=== PATIENT | male | born 1935 | race Caucasian/White ===

== ENCOUNTER 2020-07-23 20:35 | Emergency (ER) | payer BC, MEDICARE ==
[~2020-07-23] VITALS: Ht 185.4 cm; Wt 115.7 kg
[~2020-07-23 20:35] MED LIST: [UNRECOGNIZED DRUG - REMARK]
[2020-07-23 21:43] VITALS: BP 154/81
--- NOTE | 2020-07-23 21:56 | NUR ---
[facility] PATRICIO [phone]
--- NOTE | 2020-07-24 00:07 | NUR ---
VELCRO WRIST SPLINT ON RIGHT HAND.
--- NOTE | 2020-07-24 00:36 | NUR ---
Patient discharged to home in stable condition. Written and verbal after care instructions given. Patient verbalizes understanding of instruction.
--- NOTE | 2020-07-24 00:36 | NUR ---
DAUGHTER OUTSIDE TO RECEIVE PATIENT.
== END 2020-07-24 00:36 | disposition home or self-care (01) ==
LOC: ER 20:38
DX: S63.591A Other specified sprain of right wrist, initial encounter (principal); S09.8XXA Other specified injuries of head, initial encounter; R41.82 Altered mental status, unspecified; I10 Essential (primary) hypertension; Z90.79 Acquired absence of other genital organ(s); W01.0XXA Fall on same level from slipping, tripping and stumbling without subsequent striking against object, initial encounter; Y93.89 Activity, other specified; Y92.89 Other specified places as the place of occurrence of the external cause; Y99.8 Other external cause status
CPT/HCPCS: 70450-TC; 73110

== ENCOUNTER 2021-09-11 15:32 | Emergency (ER) | payer BC ==
[~2021-09-11] VITALS: Ht 185.4 cm; Wt 112.5 kg
--- NOTE | 2021-09-11 15:35 | NUR ---
TO ER BED 11, C/O RT SHOULDER PAIN/DISLOCATION, AAOX3, BREATHING EVEN AND NON LABORED, CONNECTED TO MONITOR
[2021-09-11] MEDS ORDERED: KETOROLAC TROMETHAMINE INJ 30 MG/ML VIAL ONE (15:52)
[2021-09-11] MEDS ORDERED: FENTANYL PF 100MCG/2ML AMPUL ONE (15:52)
[2021-09-11] MEDS ORDERED: FENTANYL PF 100MCG/2ML AMPUL IM ONE (16:00)
[2021-09-11] MEDS ORDERED: KETOROLAC TROMETHAMINE INJ 30 MG/ML VIAL IM ONE (16:00)
[2021-09-11] MEDS ORDERED: PROPOFOL 20 ML IV ONE (16:19)
--- NOTE | 2021-09-11 16:24 | NUR ---
RT SHOULDER DISLOCATION REDUCTION UNDER MODERATE SEDATION WITH DR GALEANO. GIVEN 70MG OF PROPOFOL
[2021-09-11] MEDS ORDERED: PROPOFOL 200 MG/20 ML VIAL IV ONE (16:30)
--- NOTE | 2021-09-11 17:31 | NUR ---
CALLED BLAIR FOR POST REDUCTION X RAY READ.
--- NOTE | 2021-09-11 17:45 | NUR ---
Patient discharged to daughter in stable condition. Written and verbal after care instructions given. Patient verbalizes understanding of instruction.
[2021-09-11 18:03] VITALS: BP 154/70
== END 2021-09-11 18:04 | disposition home or self-care (01) ==
LOC: ER 15:34
DX: S43.014A Anterior dislocation of right humerus, initial encounter (principal); I10 Essential (primary) hypertension; Z98.890 Other specified postprocedural states; Z90.49 Acquired absence of other specified parts of digestive tract; W18.39XA Other fall on same level, initial encounter; Y93.89 Activity, other specified; Y92.89 Other specified places as the place of occurrence of the external cause; Y99.8 Other external cause status
CPT/HCPCS: 23650; 73030 ×2; 96372 ×2; 99152; 99285; J1885; J2704; J3010; J7030; G0500

== ENCOUNTER 2022-12-03 11:56 | Emergency (ER) | payer BC ==
[~2022-12-03] VITALS: Ht 185.4 cm; Wt 110.7 kg
[2022-12-03 12:08] VITALS: BP 158/88
[2022-12-03] MEDS ORDERED: IBUP-1955 PO (13:19)
== END 2022-12-03 13:34 | disposition home or self-care (01) ==
LOC: ER 12:00
DX: S91.112A Laceration without foreign body of left great toe without damage to nail, initial encounter (principal); S20.212A Contusion of left front wall of thorax, initial encounter; I10 Essential (primary) hypertension; Z90.49 Acquired absence of other specified parts of digestive tract; Z98.890 Other specified postprocedural states; Z79.899 Other long term (current) drug therapy; W17.89XA Other fall from one level to another, initial encounter; Y93.89 Activity, other specified; Y92.89 Other specified places as the place of occurrence of the external cause; Y99.8 Other external cause status
CPT/HCPCS: 71100-TC

== ENCOUNTER 2023-11-29 21:21 | Inpatient (IN) | payer BC, MEDICARE ==
[~2023-11-29] VITALS: Ht 185.4 cm; Wt 116.1 kg
[~2023-11-29 21:21] MED LIST changes: +IBUP-1955 PO
[2023-11-29] MEDS ORDERED: IV NS 0.9% 500 ML BAG IV ONE (22:00)
[2023-11-29 23:14] LABS: BASOPHILS % (AUTO) 0.2 % (0.0-2.0); EOSINOPHILS # (AUTO) 0.2 K/uL (0.0-0.7); EOSINOPHILS % (AUTO) 1.4 % (0.0-6.0); HEMATOCRIT 42 % (39-51); HEMOGLOBIN 14.2 g/dL (13.5-17.5); LYMPHOCYTES # (AUTO) 2.1 K/uL (0.8-4.8); LYMPHOCYTES % (AUTO) 19.3 % (20.0-44.0); MEAN CORPUSCULAR HEMOGLOBIN 31 PG (26.0-33.0); MEAN CORPUSCULAR HGB CONC 34 g/dl (31.0-36.0); MEAN CORPUSCULAR VOLUME 91 fL (80-96); MONOCYTES # (AUTO) 0.8 K/uL (0.1-1.30); MONOCYTES % (AUTO) 7.3 % (2.0-12.0); NEUTROPHILS # (AUTO) 7.7 K/uL (1.8-8.9); NEUTROPHILS % (AUTO) 71.8 % (43.0-81.0); PLATELET COUNT (AUTO) 267 K/uL (150-450); RED BLOOD CELL COUNT(AUTO) 4.59 MIL/uL (4.5-6.0); RED CELL DISTRIBUTION WIDTH 13.5 % (11.5-15.0); WHITE BLOOD COUNT (AUTO) 10.8 K/uL (4.3-11.0)
[2023-11-29 23:22] LABS: CALCIUM, SERUM 8.8 mg/dL (8.5-10.1); CARBON DIOXIDE 25 mmol/L (21-32); CHLORIDE 102 mmol/L (98-107); GLUCOSE 108 mg/dL (74-106); POTASSIUM 3.9 mmol/L (3.5-5.1); SODIUM SERUM 137 mmol/L (136-145); UREA NITROGEN, BLOOD 28 mg/dL (7-18)
[2023-11-29 23:27] LABS: INR 0.97 (0.91-1.10); PARTIAL THROMBOPLASTIN TIME 28.3 SEC (24.3-34.3); PROTHROMBIN TIME 10.3 SECS (9.2-11.1)
[2023-11-29] MEDS ORDERED: ONDANSETRON HCL/PF 4 MG/2 ML VIAL IVP PRN (23:30)
[2023-11-29] MEDS ORDERED: MORPHINE SULFATE INJ 2 MG/ML DISP.SYRIN IV PRN (23:30)
[2023-11-29] MEDS ORDERED: hydrALAZINE HCL IV 20 MG VIAL IV PRN (23:30)
[2023-11-29] MEDS ORDERED: ACETAMINOPHEN 325 MG TABLET PO PRN (23:30)
[2023-11-29] MEDS ORDERED: IV NS 0.9% 1,000 ML IV SCH (23:30)
[2023-11-29 23:32] LABS: ALANINE AMINOTRANSFERASE 27 U/L (12-78); ALBUMIN 3.5 g/dL (3.4-5.0); ALKALINE PHOSPHATASE 87 U/L (46-116); ASPARTATE AMINOTRANSFERASE 24 U/L (15-37); BILIRUBIN,DIRECT 0.1 mg/dL (0.0-0.2); BILIRUBIN,TOTAL 0.5 mg/dL (0.2-1.0); LIPASE 16 U/L (16-77); TOTAL PROTEIN, SERUM 6.9 g/dL (6.4-8.2)
[2023-11-30] VITALS (9 sets, daily range): BP systolic 104–170; BP diastolic 78–101; TEMP 97.9–98.4; O2SAT 95–99
[2023-11-30 06:45] LABS: BASOPHILS % (AUTO) 0.3 % (0.0-2.0); EOSINOPHILS # (AUTO) 0.1 K/uL (0.0-0.7); EOSINOPHILS % (AUTO) 0.8 % (0.0-6.0); HEMATOCRIT 37 % (39-51); HEMOGLOBIN 12.4 g/dL (13.5-17.5); LYMPHOCYTES # (AUTO) 1.9 K/uL (0.8-4.8); MEAN CORPUSCULAR HEMOGLOBIN 31 PG (26.0-33.0); MEAN CORPUSCULAR HGB CONC 33 g/dl (31.0-36.0); MEAN CORPUSCULAR VOLUME 93 fL (80-96); MONOCYTES # (AUTO) 0.6 K/uL (0.1-1.30); MONOCYTES % (AUTO) 5.9 % (2.0-12.0); NEUTROPHILS # (AUTO) 7.9 K/uL (1.8-8.9); PLATELET COUNT (AUTO) 193 K/uL (150-450); RED BLOOD CELL COUNT(AUTO) 3.98 MIL/uL (4.5-6.0); RED CELL DISTRIBUTION WIDTH 13.8 % (11.5-15.0); WHITE BLOOD COUNT (AUTO) 10.5 K/uL (4.3-11.0)
[2023-11-30 06:54] LABS: CALCIUM, SERUM 8.3 mg/dL (8.5-10.1)
[2023-11-30 07:58] LABS: BASOPHILS % (AUTO) 0.2 % (0.0-2.0); EOSINOPHILS # (AUTO) 0.1 K/uL (0.0-0.7); EOSINOPHILS % (AUTO) 0.3 % (0.0-6.0); HEMATOCRIT 38 % (39-51); HEMOGLOBIN 12.5 g/dL (13.5-17.5); LYMPHOCYTES # (AUTO) 1.1 K/uL (0.8-4.8); LYMPHOCYTES % (AUTO) 7.2 % (20.0-44.0); MEAN CORPUSCULAR HEMOGLOBIN 31 PG (26.0-33.0); MEAN CORPUSCULAR HGB CONC 33 g/dl (31.0-36.0); MEAN CORPUSCULAR VOLUME 92 fL (80-96); MONOCYTES # (AUTO) 0.8 K/uL (0.1-1.30); NEUTROPHILS # (AUTO) 13.5 K/uL (1.8-8.9); NEUTROPHILS % (AUTO) 87.3 % (43.0-81.0); PLATELET COUNT (AUTO) 228 K/uL (150-450); RED CELL DISTRIBUTION WIDTH 13.7 % (11.5-15.0); WHITE BLOOD COUNT (AUTO) 15.4 K/uL (4.3-11.0)
[2023-11-30] MEDS ORDERED: ATOR10TA PO (08:03)
[2023-11-30] MEDS ORDERED: NEBI5TAB8 PO (08:03)
[2023-11-30] MEDS ORDERED: LORA-258 PO (08:03)
[2023-11-30] MEDS ORDERED: AMLO5TAB4 PO (08:03)
[2023-11-30] MEDS ORDERED: TAMS-12 PO (08:03)
[2023-11-30 08:12] LABS: ALBUMIN 3.3 g/dL (3.4-5.0); BILIRUBIN,TOTAL 0.5 mg/dL (0.2-1.0); CALCIUM, SERUM 8.6 mg/dL (8.5-10.1); CREATININE 1.1 mg/dL (0.6-1.3); MAGNESIUM 2.3 mg/dL (1.8-2.4); PHOSPHORUS 3.2 mg/dL (2.5-4.9); POTASSIUM 4.2 mmol/L (3.5-5.1); TOTAL PROTEIN, SERUM 6.3 g/dL (6.4-8.2)
[2023-11-30] MEDS: PANTOPRAZOLE 40 MG VIAL IV SCH ×2 (09:26→17:53)
[2023-11-30] MEDS: CEFTRIAXONE 1 G in IV D5W 50 ML IV SCH (12:44)
[2023-11-30] MEDS: METRONIDAZOLE 500MG/ NS 100ML 500 MG in PREMIX 1 EA IV SCH ×2 (14:16→17:59)
[2023-11-30] MEDS: IV NS 0.9% 1,000 ML IV PRN ×2 (18:00→23:23)
[2023-11-30] MEDS ORDERED: AMIODARONE 150 MG in IV D5W 100 ML IV ONE (22:00)
[2023-11-30] MEDS ORDERED: AMIODARONE 150 MG/3 ML VIAL IV ONE ×2 (22:31→22:39)
[2023-11-30] MEDS: AMIODARONE 450 MG in IV D5W 241 ML IV PRN (22:47)
[2023-12-01] VITALS (30 sets, daily range): BP systolic 110–188; BP diastolic 68–112; TEMP 97.3–98.4; O2SAT 96–99
[2023-12-01] MEDS: METRONIDAZOLE 500MG/ NS 100ML 500 MG in PREMIX 1 EA IV SCH ×5 (00:06→23:31)
[2023-12-01 04:22] LABS: CALCIUM, SERUM 8.4 mg/dL (8.5-10.1); CARBON DIOXIDE 26 mmol/L (21-32); CHLORIDE 106 mmol/L (98-107); GLUCOSE 107 mg/dL (74-106); POTASSIUM 3.8 mmol/L (3.5-5.1); SODIUM SERUM 139 mmol/L (136-145); UREA NITROGEN, BLOOD 15 mg/dL (7-18)
[2023-12-01 04:26] LABS: BASOPHILS % (AUTO) 0.1 % (0.0-2.0); EOSINOPHILS # (AUTO) 0.1 K/uL (0.0-0.7); HEMATOCRIT 35 % (39-51); HEMOGLOBIN 11.9 g/dL (13.5-17.5); LYMPHOCYTES # (AUTO) 1.7 K/uL (0.8-4.8); LYMPHOCYTES % (AUTO) 13.1 % (20.0-44.0); MEAN CORPUSCULAR HEMOGLOBIN 31 PG (26.0-33.0); MEAN CORPUSCULAR HGB CONC 34 g/dl (31.0-36.0); MEAN CORPUSCULAR VOLUME 91 fL (80-96); MONOCYTES # (AUTO) 0.8 K/uL (0.1-1.30); MONOCYTES % (AUTO) 6.3 % (2.0-12.0); NEUTROPHILS # (AUTO) 10.1 K/uL (1.8-8.9); NEUTROPHILS % (AUTO) 79.5 % (43.0-81.0); PLATELET COUNT (AUTO) 232 K/uL (150-450); RED BLOOD CELL COUNT(AUTO) 3.82 MIL/uL (4.5-6.0); RED CELL DISTRIBUTION WIDTH 13.8 % (11.5-15.0); WHITE BLOOD COUNT (AUTO) 12.7 K/uL (4.3-11.0)
[2023-12-01] MEDS: AMIODARONE 450 MG in IV D5W 241 ML IV PRN (08:09)
[2023-12-01] MEDS: METOPROLOL TARTRATE 25 MG TABLET PO SCH ×2 (08:49→21:03)
[2023-12-01] MEDS: AMLODIPINE BESYLATE 5 MG TABLET PO SCH (08:49)
[2023-12-01] MEDS: ATORVASTATIN 10 MG TABLET PO SCH (08:50)
[2023-12-01] MEDS: TAMSULOSIN 0.4 MG CAP.SR.24H PO SCH (08:50)
[2023-12-01] MEDS: PANTOPRAZOLE 40 MG VIAL IV SCH ×2 (08:50→17:23)
[2023-12-01 09:10] LABS: THYROID STIMULATING HORMONE 1.064 uIU/mL (0.358-3.74)
[2023-12-01] MEDS: CEFTRIAXONE 1 G in IV D5W 50 ML IV SCH (10:21)
[2023-12-01] MEDS: IV NS 0.9% 1,000 ML IV PRN (14:36)
[2023-12-01 23:38] LABS: HEMOGLOBIN 11.6 g/dL (13.5-17.5)
[2023-12-02] VITALS: BP 120/62; TEMP 98.6; O2SAT 95
[2023-12-02 04:00] VITALS: BP 157/89; TEMP 98.4; O2SAT 98
[2023-12-02] MEDS: METRONIDAZOLE 500MG/ NS 100ML 500 MG in PREMIX 1 EA IV SCH ×3 (05:14→17:50)
[2023-12-02 07:42] LABS: BASOPHILS % (AUTO) 0.1 % (0.0-2.0); EOSINOPHILS # (AUTO) 0.2 K/uL (0.0-0.7); EOSINOPHILS % (AUTO) 1.6 % (0.0-6.0); HEMATOCRIT 33 % (39-51); HEMOGLOBIN 11.2 g/dL (13.5-17.5); LYMPHOCYTES # (AUTO) 1.5 K/uL (0.8-4.8); MEAN CORPUSCULAR HEMOGLOBIN 31 PG (26.0-33.0); MEAN CORPUSCULAR HGB CONC 34 g/dl (31.0-36.0); MEAN CORPUSCULAR VOLUME 91 fL (80-96); MONOCYTES # (AUTO) 1.1 K/uL (0.1-1.30); NEUTROPHILS # (AUTO) 9.9 K/uL (1.8-8.9); NEUTROPHILS % (AUTO) 77.3 % (43.0-81.0); PLATELET COUNT (AUTO) 227 K/uL (150-450); RED BLOOD CELL COUNT(AUTO) 3.63 MIL/uL (4.5-6.0); RED CELL DISTRIBUTION WIDTH 13.9 % (11.5-15.0); WHITE BLOOD COUNT (AUTO) 12.8 K/uL (4.3-11.0)
[2023-12-02 07:56] LABS: CALCIUM, SERUM 8.3 mg/dL (8.5-10.1); CREATININE 0.9 mg/dL (0.6-1.3); MAGNESIUM 2.1 mg/dL (1.8-2.4); PHOSPHORUS 2.7 mg/dL (2.5-4.9); POTASSIUM 3.5 mmol/L (3.5-5.1)
[2023-12-02 08:00] VITALS: BP 135/74; TEMP 98.6; O2SAT 97
[2023-12-02] MEDS: IV NS 0.9% 1,000 ML IV PRN (10:03)
[2023-12-02] MEDS: PANTOPRAZOLE 40 MG/PACK PACK PO SCH ×2 (10:04→16:23)
[2023-12-02] MEDS: ATORVASTATIN 10 MG TABLET PO SCH (10:04)
[2023-12-02] MEDS: ASPIRIN 81 MG TAB.CHEW PO SCH (10:05)
[2023-12-02] MEDS: TAMSULOSIN 0.4 MG CAP.SR.24H PO SCH (10:05)
[2023-12-02] MEDS: AMIODARONE HCL 200 MG TABLET PO SCH ×3 (10:05→16:23)
[2023-12-02] MEDS: AMLODIPINE BESYLATE 5 MG TABLET PO SCH (10:05)
[2023-12-02] MEDS: CEFTRIAXONE 1 G in IV D5W 50 ML IV SCH (10:06)
[2023-12-02] MEDS: METOPROLOL TARTRATE 25 MG TABLET PO SCH ×2 (10:06→21:23)
[2023-12-02 12:00] VITALS: BP 129/79; TEMP 98; O2SAT 97
[2023-12-02 16:00] VITALS: BP 99/63; TEMP 98.1; O2SAT 97
[2023-12-02 20:00] VITALS: BP 128/80; TEMP 98.4; O2SAT 96
[2023-12-03] VITALS: BP 145/77; TEMP 98.6; O2SAT 97
[2023-12-03] MEDS: METRONIDAZOLE 500MG/ NS 100ML 500 MG in PREMIX 1 EA IV SCH ×4 (00:26→17:07)
[2023-12-03 04:00] VITALS: BP 144/75; TEMP 97.8; O2SAT 96
[2023-12-03 07:39] LABS: BASOPHILS % (AUTO) 0.2 % (0.0-2.0); EOSINOPHILS # (AUTO) 0.3 K/uL (0.0-0.7); EOSINOPHILS % (AUTO) 2.6 % (0.0-6.0); HEMATOCRIT 34 % (39-51); HEMOGLOBIN 11.5 g/dL (13.5-17.5); LYMPHOCYTES # (AUTO) 1.8 K/uL (0.8-4.8); LYMPHOCYTES % (AUTO) 15.4 % (20.0-44.0); MEAN CORPUSCULAR HEMOGLOBIN 31 PG (26.0-33.0); MEAN CORPUSCULAR HGB CONC 34 g/dl (31.0-36.0); MEAN CORPUSCULAR VOLUME 92 fL (80-96); MONOCYTES # (AUTO) 0.8 K/uL (0.1-1.30); MONOCYTES % (AUTO) 7.1 % (2.0-12.0); NEUTROPHILS # (AUTO) 8.5 K/uL (1.8-8.9); NEUTROPHILS % (AUTO) 74.7 % (43.0-81.0); PLATELET COUNT (AUTO) 218 K/uL (150-450); RED BLOOD CELL COUNT(AUTO) 3.68 MIL/uL (4.5-6.0); RED CELL DISTRIBUTION WIDTH 13.8 % (11.5-15.0); WHITE BLOOD COUNT (AUTO) 11.4 K/uL (4.3-11.0)
[2023-12-03 08:00] VITALS: BP 155/82; TEMP 98.1; O2SAT 96
[2023-12-03] MEDS: TAMSULOSIN 0.4 MG CAP.SR.24H PO SCH (08:47)
[2023-12-03] MEDS: ASPIRIN 81 MG TAB.CHEW PO SCH (08:47)
[2023-12-03] MEDS: PANTOPRAZOLE 40 MG/PACK PACK PO SCH ×2 (08:47→17:07)
[2023-12-03] MEDS: ATORVASTATIN 10 MG TABLET PO SCH (08:47)
[2023-12-03] MEDS: AMLODIPINE BESYLATE 5 MG TABLET PO SCH (08:48)
[2023-12-03] MEDS: AMIODARONE HCL 200 MG TABLET PO SCH ×3 (08:48→17:17)
[2023-12-03] MEDS: METOPROLOL TARTRATE 25 MG TABLET PO SCH (08:48)
[2023-12-03 08:51] LABS: CALCIUM, SERUM 8.3 mg/dL (8.5-10.1); CARBON DIOXIDE 23 mmol/L (21-32); CHLORIDE 106 mmol/L (98-107); GLUCOSE 107 mg/dL (74-106); PHOSPHORUS 2.8 mg/dL (2.5-4.9); POTASSIUM 3.4 mmol/L (3.5-5.1); SODIUM SERUM 139 mmol/L (136-145); UREA NITROGEN, BLOOD 10 mg/dL (7-18)
[2023-12-03] MEDS: IV NS 0.9% 1,000 ML IV PRN (11:14)
[2023-12-03] MEDS: CEFTRIAXONE 1 G in IV D5W 50 ML IV SCH (11:15)
[2023-12-03 12:00] VITALS: BP 148/86; TEMP 98.2; O2SAT 98
[2023-12-03] MEDS ORDERED: POTASSIUM CHLORIDE 20 MEQ TAB.PRT.SR PO ONE (14:30)
[2023-12-03] MEDS ORDERED: AMIO200T7 PO (17:15)
[2023-12-03] MEDS ORDERED: CIPR500T5 PO (17:15)
[2023-12-03] MEDS ORDERED: ASPI-1169 PO (17:15)
[2023-12-03] MEDS ORDERED: METR500T PO (17:15)
[2023-12-03 17:17] VITALS: BP 139/82
== END 2023-12-03 18:54 | disposition home health service (06) | DRG 385 ==
LOC: ER 21:22 → TRANSITION 11-30 00:32 → TELE1 11-30 00:59 → TELE 11-30 00:59 → MED 11-30 01:24 → ICU 11-30 22:07 → TELE-TD 12-01 18:08 → TELE1 12-02 08:48
PROVIDERS: ADMIT Internal Medicine; ATTEND Internal Medicine
DX: K51.311 Ulcerative (chronic) rectosigmoiditis with rectal bleeding (principal); K57.31 Diverticulosis of large intestine without perforation or abscess with bleeding; K65.4 Sclerosing mesenteritis; I47.10 Supraventricular tachycardia, unspecified; I48.92 Unspecified atrial flutter; E87.20 Acidosis, unspecified; I10 Essential (primary) hypertension; Z90.49 Acquired absence of other specified parts of digestive tract; E78.5 Hyperlipidemia, unspecified; E66.9 Obesity, unspecified; N40.0 Benign prostatic hyperplasia without lower urinary tract symptoms; Z87.891 Personal history of nicotine dependence; Z68.32 Body mass index [BMI] 32.0-32.9, adult
CPT/HCPCS: 36415; 80048-TC; 80053-TC; 80061-TC; 80076-TC; 82728-TC; 82962-TC; 83540-TC; 83605-TC; 83690-TC; 83735-TC; 84100-TC; 84439-TC; 84443-TC; 84484-TC; 85025-TC; 85027-TC; 85730-TC; 86850-TC; 93307-TC; 97116-TC; 97530-TC; A4216; A4223; C9113; G0378; J0282; J0360; J0696; J2270; J2405; J7030; J7060